=== PATIENT | male | born 1975 | race Caucasian/White ===

== ENCOUNTER → 2020-03-14 11:24 | Outpatient (BNVA) | payer OTHER, SELFPAY | PROVIDERS: Visit Provider Nurse Practitioner Family | DX: Z11.59 Encounter for screening for other viral diseases (principal) | CPT/HCPCS: 87635 ==

== ENCOUNTER 2020-09-11 07:23 | Outpatient (CLI) | payer OTHER, SELFPAY ==
--- NOTE | 2020-09-11 07:15 | USCV_ITS ---
Romel Caballero Age: 45 Gender: M : 1975 Exam Date: 09/11/2020 07:56 Ordering Phys: Shyann Oreilly DO Technologist: Paramjit Watts Exam Location: [facility] – [place] Indication: CARDIOMEGALY BP: 161 / 105 HR: 40 Rhythm: Other Technical Quality: Good MEASUREMENTS (Male / Female) Normal Values 2D ECHO LV Diastolic Diameter PLAX 4.5 cm 4.2 - 5.9 / 3.9 - 5.3 cm LV Systolic Diameter PLAX 3.5 cm IVS Diastolic Thickness 1.2 cm 0.6 - 1.0 / 0.6 - 0.9 cm IVS Systolic Thickness 1.9 cm LVPW Diastolic Thickness 1.3 cm 0.6 - 1.0 / 0.6 - 0.9 cm LVPW Systolic Thickness 1.5 cm LVOT Diameter 2.0 cm LV Ejection Fraction 2D Teich 43.4 % LV Ejection Fraction MOD 2C 32.6 % LV Ejection Fraction 2C AL 34.7 % LA Diameter 3.4 cm LA Width 4.1 cm LA Height 5.6 cm RA Width 6.2 cm RA Height 6.2 cm Aorta at Sinotubular Diameter 2.8 cm M-MODE LV Diastolic Diameter MM 4.5 cm 4.2 - 5.9 / 3.9 - 5.3 cm LV Systolic Diameter MM 3.1 cm LV Ejection Fraction MM Teich 59.4 % IVS Diastolic Thickness MM 1.1 cm 0.6 - 1.0 / 0.6 - 0.9 cm IVS Systolic Thickness MM 1.5 cm LVPW Diastolic Thickness MM 0.9 cm 0.6 - 1.0 / 0.6 - 0.9 cm LVPW Systolic Thickness MM 1.5 cm Aortic Annulus Diameter 3.4 cm LA Ao Ratio MM 1.0 MV E Point Septal Separation 0.6 cm DOPPLER AV Peak Velocity 90.0 cm/s LVOT Peak Velocity 106.0 cm/s AV Area Cont Eq vti 3.3 cm squared AV Area Cont Eq pk 3.8 cm squared MV Area PHT 5.0 cm squared Mitral E to A Ratio 1.2 MV E' Velocity 44.5 cm/s Mitral E to MV E' Ratio 4.8 Mitral E to LV E' Lateral Ratio 5.1 Mitral E to LV E' Septal Ratio 4.6 TR Peak Velocity 203.7 cm/s TR Peak Gradient 16.6 mmHg Right Atrial Pressure 8.0 mmHg Pulmonary Artery Systolic Pressu 24.6 mmHg PV Peak Velocity 57.0 cm/s RV Acceleration Time 0.2 s RV Ejection Time 0.4 s RV AcT/ET 0.5 FINDINGS Left Ventricle Normal left ventricular size with ejection fraction around 40 to 45%. Diffuse hypokinesia of the left ventricle. Right Ventricle Mildly dilated right ventricle with a slightly diminished ejection fraction. Right Atrium Mildly increased right atrial size. Left Atrium Mildly increased left atrial size. Mitral Valve Trace to mild mitral valve regurgitation. Aortic Valve No gross abnormalities noted Tricuspid Valve Mild tricuspid valve regurgitation. Pulmonic Valve Trace pulmonary valve regurgitation. Pericardium Normal pericardium without effusion. Aorta Normal ascending aorta dimension. CONCLUSIONS Four-chamber dilatation with diminished related with ejection fraction of around 40 to 45%. Right ventricular ejection fraction is slightly diminished. Mild tricuspid valve regurgitation. Trace to mild mitral valve regurgitation. Trace pulmonary valve regurgitation. There is no pericardial effusion. There are no intracardiac masses. The above features may suggest some form of nonischemic cardiomyopathy. No previous studies available for comparison Dr Edmund Omer MD [facility] (Electronically Signed) Final Date: 11 September 2020 09:59 S
== END 2020-09-11 07:24 | disposition home or self-care (01) ==
PROVIDERS: Visit Provider Family Medicine
DX: I08.1 Rheumatic disorders of both mitral and tricuspid valves (principal)
CPT/HCPCS: 80053; 80061; 84153; 85025; 93306

== ENCOUNTER 2020-11-09 13:00 | Outpatient (CLI) | payer OTHER, SELFPAY | END 2020-11-09 13:01 | disposition home or self-care (01) | LOC: SLEEP 11-13 10:36 | PROVIDERS: PCP Family Medicine; Visit Provider Family Medicine | DX: G47.10 Hypersomnia, unspecified (principal) | CPT/HCPCS: G0399 ==

== ENCOUNTER 2020-12-26 11:46 | Outpatient (CLI) | payer OTHER, SELFPAY ==
[2020-12-26 11:53] VITALS: BMI 28.0
--- NOTE | 2020-12-26 11:57 | USCV_ITS ---
Stress Echo Romel Caballero Age: 45 Gender: M : 1975 Exam Date: 12/26/2020 12:18 Ordering Phys: Maria Teresa Navarro MD ([email or web address]) Technologist: [place] [facility] [place]: CHF Rhythm: Sinus Patient History: CHF, Family history Cardiac Medications: No cardiac medications Medications in past 24 hours: Contrast: Stress Results Protocol: Jose Total dose(mL): Exercise Duration (min:sec): 10:53 METS: 13.5 Resting HR: 41 Resting BP: 149 / 93 Peak HR: 154 Peak BP: 213 / 93 Max Predicted HR: 177 87 % Max Predicted HR Target HR: 150 Double Product: [id number] Stress Summary: The patient's target heart rate was achieved The hemodynamic response to exercise was normal BP Response: Normal Reason for Termination: Test terminated after reaching target heart rate (85% max predicted) Cardiac Symptoms: None ECG Analysis Resting ECG: Stress ECG: Arrhythmia: MEASUREMENTS (Male/Female) Normal Values FINDINGS PROCEDURE: At the baseline, the patient's blood pressure was 149/93 mmHg with a heart rate of 43 bpm. The patient exercised for 10 minutes and 53 second on a standard Jose protocol. Patient attained a maximum heart rate of 154 beats per minute([ 87] % of the maximum predicted heart rate) with a blood pressure at the peak exercise of 213/93 mm Hg. During the recovery phase, there were no new changes. Echocardiographic pictures were taken at the baseline, immediately following the peak exercise and during the recovery phase. Baseline echocardiogram: Normal left ventricular size and systolic function with ejection fraction estimated at 55 %. No regional wall motion abnormalities. Normal right ventricle size and systolic function. Normal left and right atrial size. No pericardial effusion. No intracardiac masses. Peak exercise echocardiogram: Normal augmentation of left ventricular systolic function with exercise. No new regional wall motion abnormalities. Recovery echocardiogram: Left ventricular systolic function normalizes. No regional wall motion abnormalities. CONCLUSIONS 1. This is a treadmill stress echocardiogram. 2. Fair exercise tolerance, attained a maximum of 13.5 METs. Double product of 32,803. 3. Baseline hypertension with hypertensive response and normal heart rate response to exercise. 4. Normal echocardiographic response to exercise. 5. Please see separate report for the EKG portion of the study. Maria Teresa Navarro MD (Electronically Signed) Final Date: 26 December 2020 21:15 S
--- NOTE | 2020-12-26 11:57 | ECG_ITS ---
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 Interpretive Statements NAME OF STUDY: TREADMILL STRESS ECHOCARDIOGRAM INDICATION: CHF, Family H/o CAD PROCEDURE: At the baseline, the patient's blood pressure was 149/93 mm Hg with a heart rate of 41 bpm and oxygen saturation of 95%. The baseline electrocardiogram showed normal sinus rhythm, normal axis with normal ST-Ts. The patient exercised for 10 minutes and 53 seconds on a [standard Jose protocol]. Patient attained a maximum heart rate of 154 beats per minute( 87 % of the maximum predicted heart rate) with a blood pressure at the peak exercise of 213/85 mm Hg. The EKG at the peak exercise revealed sinus tachycardia with no significant ST-T wave changes. Patient did not have any chest pain or any significant EKG changes with the exercise. During the recovery phase, there were no new changes.There was 3 beats long 2:1 AV block twice late in recovery. Blood pressure at the end of the recovery phase was 142/80 mm Hg with a heart rate of 73 beats per minute and oxygen saturation of 95%. Echocardiographic pictures were taken at the baseline, immediately following the peak exercise and during the recovery phase. CONCLUSION: 1. Normal EKG response to treadmill exercise. 2. No exercise-induced chest pain or cardiac arrhythmia. 3. Excellent exercise tolerance, attained a maximum of 13.5 METs. Maximum VO2 of 47.3 ml/kg/min. 4. Baseline hypertension with hypertensive response to exercise. 5. Please see separate report for the echocardiographic response to exercise. RESULTS TO HERNANDEZ REYES Electronically Signed On 12-26-2020 21:38:54 CDT by Maria Teresa Navarro M.D. [email or web address]
[2020-12-26 12:43] VITALS: BP 142/68; PULSE 73
== END 2020-12-26 11:47 | disposition home or self-care (01) ==
PROVIDERS: PCP Family Medicine; Visit Provider Internal Medicine Cardiovascular Disease
DX: I50.9 Heart failure, unspecified (principal); I10 Essential (primary) hypertension
CPT/HCPCS: 93017; 93350